=== PATIENT | male | born 2000 | race Two or more races ===

== ENCOUNTER → 2025-03-23 | Emergency (ER) | payer OTHER ==
[~2025-03-23] VITALS: Ht 175.3 cm; Wt 72.1 kg
[~2025-03-23] MED LIST: CYCLOBENZAPRINE10 MG PO; DEXAMETHASONE SODIUM PHOSPHATE 4 MG/ML VIAL IM ONE; DEXAMETHASONE SODIUM PHOSPHATE 4 MG/ML VIAL ONE; IBUPROFEN600 MG PO; KETOROLAC TROMETHAMINE 60 MG VIAL IM ONE; ORPHENADRINE CITRATE 30 MG/ML AMPUL IM ONE; ORPHENADRINE CITRATE 30 MG/ML AMPUL ONE
== END | disposition home or self-care (01) ==
LOC: ER 09:54
DX: M25.512 Pain in left shoulder (principal)

== ENCOUNTER 2025-04-04 12:14 | Emergency (ER) | payer OTHER ==
[~2025-04-04] VITALS: Ht 175.3 cm; Wt 63.5 kg
[~2025-04-04 12:14] MED LIST changes: -DEXAMETHASONE SODIUM PHOSPHATE 4 MG/ML VIAL IM ONE; -DEXAMETHASONE SODIUM PHOSPHATE 4 MG/ML VIAL ONE; -KETOROLAC TROMETHAMINE 60 MG VIAL IM ONE; -ORPHENADRINE CITRATE 30 MG/ML AMPUL IM ONE; -ORPHENADRINE CITRATE 30 MG/ML AMPUL ONE
[2025-04-04] MEDS ORDERED: CEFTRIAXONE SODIUM 1,000 MG VIAL IM ONE (15:45)
[2025-04-04] MEDS ORDERED: CEFTRIAXONE SODIUM 1,000 MG VIAL ONE (15:53)
[2025-04-04 17:02] LABS: URINE APPEARANCE Clear; URINE BILIRRUBIN Negative (NEGATIVE); URINE BLOOD Negative; URINE COLOR Yellow; URINE GLUCOSE Negative (NEGATIVE); URINE KETONE Negative (NEGATIVE); URINE LEUKOCYTE Small; URINE NITRATE Negative; URINE PROTEIN Negative (NEGATIVE); URINE UROBILINOGEN 0.2 E.U./dl
[2025-04-04 17:05] LABS: URINE BACTERIA 24.4 uL (0.0-1933); URINE EPITHELIAL CELLS 3.3 uL (0.0-38.8); URINE RBC 2.7 uL (0.0-20.8); URINE WBC 78.8 uL (0.0-23.2)
[2025-04-04 17:06] LABS: BASO % 0.2 % (0.1-1.2); EOS % 1.6 % (0.7-7.0); HEMATOCRIT 40.4 % (40.1-51.0); LYMPH # 1.76 (1.18-3.74); LYMPH % 13.7 % (19.3-53.1); MEAN CORPUSCULAR HEMOGLOBIN 27.7 pg (25.6-32.2); MONO # 0.88 (0.24-0.82); MONO % 6.9 % (4.7-12.5); NEUT # 9.92 (1.56-6.13); NEUT % 77.3 % (34.0-71.1); PLATELET COUNT 180 K/uL (163-369); RED BLOOD COUNT 5.06 M/uL (4.63-6.08); RED CELL DISTRIBUTION WIDTH 12.1 % (11.6-14.4)
[2025-04-04 17:22] LABS: CALCIUM 9.4 mg/dL (8.5-10.1); CREATININE SERUM 0.93 mg/dL (0.70-1.30); GFR 101.6; POTASSIUM 4.3 mEq/L (3.5-5.1)
[2025-04-04 17:43] LABS: TYPE CELLS SQUAMOUS
== END 2025-04-04 17:55 | disposition home or self-care (01) ==
LOC: ER 12:14
PROVIDERS: General Practice
DX: R36.9 Urethral discharge, unspecified (principal); R30.0 Dysuria; N48.1 Balanitis